=== PATIENT | female | born 1935 | race Asian ===

== ENCOUNTER 2019-01-08 18:03 | Inpatient (IN) | payer OTHER, MEDICAID ==
[~2019-01-08] VITALS: Ht 147.3 cm; Wt 54.5 kg
--- NOTE | 2019-01-08 18:15 | NUR ---
RECEIVED PT FROM TRIAGE. PT FROM [facility] CLOSE BY. FEVER FOR 3 DAYS, TYLENOL GIVEN YESTERDAY. PT ARRIVED TEMP 103, CONFUSED, S/TACH ON TELE, IN DIAPER FROM FACILITY. COOLING MEASURES IMPLEMENTED IMMEDIATELY UPON ARRIVAL, ICE TO GROIN AND UNDERARMS. DAUGHTER CALLED AND WILL CALL BACK FOR UPDATES ON HER MOTHER.
[2019-01-08 18:49] LABS: PLATELET COUNT 198 x10^3mcL (130-400); RED CELL DISTRIBUTION WIDTH 14.4 % (11.5-14.5)
[2019-01-08 19:10] LABS: BAND NEUTROPHIL 6 % (0-10); BASOPHIL 0 % (0-2); METAMYELOCTE 1 % (0-2); MONOCYTE 5 % (0-7); SEGMENTED NEUTROPHILS 82 % (37-75)
[2019-01-08 19:12] LABS: rbc morphology (normal/abnorm) NORMAL (NORMAL)
[2019-01-08 19:28] LABS: CALCIUM 8.4 mg/dL (8.5-10.1); CARBON DIOXIDE 24.8 mmol/L (21-32); CHLORIDE SERUM 98 mmol/L (98-107); CREATININE SERUM 0.9 mg/dL (0.6-1.0); GLUCOSE SERUM 227 mg/dL (74-106); POTASSIUM SERUM 3.4 mmol/L (3.5-5.1); SODIUM SERUM 134 mmol/L (136-145)
--- NOTE | 2019-01-08 19:30 | NUR ---
REPORT GIVEN TO RADHA BARRIOS. EVERYTHING IS COMPLETED EXCEPT ABX.
[2019-01-08 19:37] LABS: microscopic required? YES; urine erythrocyte 2+ (NEGATIVE)
[2019-01-08 19:40] LABS: ALBUMIN 2.2 g/dL (3.4-5.0); ALKALINE PHOSPHATASE 80 U/L (46-116); ALT/SGPT 22 U/L (14-59); AST/SGOT 48 U/L (15-37); BILIRUBIN TOTAL 0.3 mg/dL (0.20-1.00); TOTAL PROTEIN, SERUM 7.4 g/dL (6.4-8.2)
--- NOTE | 2019-01-08 19:47 | NUR ---
PT MEDICATED PER ORDER. SEE EMAR.
--- NOTE | 2019-01-08 20:25 | NUR ---
SECOND ABX STARTED AT THIS TIME. PT REACHING FOR MY HAND WHEN I CALLED HER NAME.
--- NOTE | 2019-01-08 20:32 | NUR ---
SPOKE WITH PT DAUGHTER KRISTI REGARDING PT STATUS. PER DAUGHTER, HER SISTER IS ON HER WAY TO THE HOSPITAL.
--- NOTE | 2019-01-08 20:36 | NUR ---
REPORT RECEIVED FROM RADHA BARRIOS. PT IN CT AT THIS TIME. PT'S CARE ASSUMED AT THIS TIME.
--- NOTE | 2019-01-08 21:01 | NUR ---
PT STILL IN CT. DAUGHTER AT BEDSIDE AND UPDATED ON PT'S STATUS BY RADHA BARRIOS.
--- NOTE | 2019-01-08 21:02 | NUR ---
PT TO ED FROM CT AT THIS TIME.
--- NOTE | 2019-01-08 21:09 | NUR ---
PT NOT TO HAVE LABORED BREATHING. NOTED TO HAVE A POX OF 75%. PT PLACED ON NB MASK. POX IMPROVED. DR BYNUM AWARE AND CALLED TO BEDSIDE. PT BEING INTUBATED. FLUIDS STOPPED PER VERBAL INSTRUCTIONS OF DR MISA MORELOS. FAMILY AT BEDSIDE AND GAVE VERBAL CONSENT TO INTUBATE PT.
--- NOTE | 2019-01-08 21:25 | NUR ---
CALLED TO BEDSIDE TO ASSIST FOR PT INTUBATION. AT THE BEDSIDE FOR INTUBATION 21:20. 21:21 KETAMINE 100MG PER MD ORDER IVP TO RFA 20G IV ACCESS. 21:21 SUCCYNOCHOLINE 100MG AT 21:21 IVP TO RFA 20G IV ACCESS. 21;23 INTUBATION COMPLETED BY AND RT YANCI AND RT THOMAS AT BEDSIDE FOR ASSISTANCE. POSITIVE COLOR CHANGE AND AUDIBLE BREATH SOUNDS NOTED ON AUSCULTATION BY RT YANCI.
[2019-01-08 21:35] VITALS: BP 144/88
--- NOTE | 2019-01-08 21:45 | NUR ---
OJ PLACED AT THIS TIME. PLACEMENT CONFIRMED BY ASCULATION. SUCTION BEING NEEDED. RT REMAINS AT BEDSIDE.
--- NOTE | 2019-01-08 21:50 | NUR ---
FIO2 TITRATED TO 40%. SPO2 STABLE AT 96%. ABG TO FOLLOW. WILL MONITOR.
--- NOTE | 2019-01-08 22:04 | NUR ---
SPOKE WITH DR BYNUM REGARDING MED ORDERS. RN TO START FETANYL DRIP FIRST AND IF NEEDED TO START PROPOFOL DRIP. PHARMACIST CONTACTED FOR FETANYL DRIP. PHARMACIST MADE AWARE PT'S ACTUAL WEIGHT PER DAUGHTER IS "101.4" LBS.
--- NOTE | 2019-01-08 22:06 | NUR ---
X-RAY BEING DONE AT BEDSIDE.
--- NOTE | 2019-01-08 22:15 | NUR ---
ADMITTING MD AT BEDSIDE AND SPEAKING WITH DAUGHTER.
--- NOTE | 2019-01-08 22:24 | NUR ---
DR BYNUM, ERP, AT BEDSIDE. DAUGHTER UPDATED ON PLAN OF CARE.
--- NOTE | 2019-01-08 22:41 | NUR ---
FENTANYL DRIP RECEIVED FROM PHARMACY. DAUGHTER CONSIDERED ABOUT MED ADMINISTRATION STATING PT IS "NARCOTIC NAIVE." DAUGHTER MADE AWARE MED NEEDED TO KEEP PT SEDATED TO PREVENT SELF-EXTUBATION. DAUGHTER VERBALIZED UNDERSTANDING. DAUGHTER REQUESTING A LOWER STARTING DOSE. AWAITING CONFIRMATION FROM MD PRIOR TO MED ADMINISTRATION. PT TOLERATING INTUBATION WELL AT THIS TIME. RT AT BEDSIDE FOR ABG. DAUGHTER REMAINS AT BEDSIDE.
--- NOTE | 2019-01-08 22:57 | NUR ---
LUMBAR PUNCTURE TO BE DONE BY DR BYNUM. DAUGHTER GAVE VERBAL AND WRITTEN CONSENT. ERT SETTING UP FOR LP AT BEDSIDE.
--- NOTE | 2019-01-08 23:00 | NUR ---
PATIENT FOUND WITH ETT 23CM AT THE RIGHT LIP. ETT WITHDRAWN 3CM. ETT AT 20CM AT RIGHT LIP. RN NOTIFIED. BILATERAL BREATH SOUNDS NOTED. WILL MONITOR.
--- NOTE | 2019-01-08 23:05 | NUR ---
RT, THOMAS, AT BEDSIDE. INTUBATION TUBE PULLED BACK 2 CM. 7.5TUBE AT 20LIP AT THIS TIME.
--- NOTE | 2019-01-08 23:17 | NUR ---
PT ADMITTED TO ICU. REPORT CALLED TO URIAH BARRIOS. OPPORTUNITY GIVEN TO ASK QUESTIONS. PT BEING TRANSFERRED TO ICU POST LP PROCEDURE.
--- NOTE | 2019-01-08 23:59 | NUR ---
LP PROCEDURE COMPLETED BY DR BYNUM. 4 SPECIMEN TUBES COLLECTED BY ERP, LABELED AND WALKED TO LAB BY RN. PT TEMP RECHECKED AND PT REMEDICATED WITH 650MG TYLENOL SUPPOSITORY PER ERP'S VERBAL ORDERS. BP DECREASED POST FENTANYL IVP (100MCG) PRIOR TO LP PROCEDURE PER ERICH BYNUM VERBAL ORDER. WILL CONTINUE TO MONITOR. FAMILY UPDATED ON PLAN OF CARE. PT BEING TRANSFERRED TO ICU AT THIS TIME BY RN.
[2019-01-09] VITALS (16 sets, daily range): BP systolic 82–116; BP diastolic 41–76
--- NOTE | 2019-01-09 00:30 | NUR ---
RECEVIED PT FROM ER ACCOMPANIED BY HALEY RN AND ANGÉLICA EMT. PT TRANSFERRED TO ICU BED 3 WITH FULL ASSIST TO BED, NO COMPLICATIONS, ATTACHED TO FULL SEDIMENTATIONIST AND PULSE OXIMETRY. RECEIVED PT INTUBATED AND SEDATED ON FENTANYL @ 2.5 MCG/KG/HR, TITRATED TO 0.5 MCG/KG/HR, RSS=5 AT THIS TIME, RESPONDS TO PAINFUL STIMULI, EYES DO NOT OPEN SPONTANEOUSLY AND DO NOT TRACK. PUPILS 2MM SLUGGISH RESPONSE TO LIGHT B/L, PERRLA. NO FACIAL DROOP NOTED.PT INTUBATED TO VENT, INTACT/SECURED. OGT INTACT/SECURED AND CLAMPED. ORAL MUCOSA COATED. TRACHEA MIDLINE, NO DRAINAGE TO EENT.7.5 ETT, 20 LL, ORAL CARE PROVIDED PER VAP PROTOCOL. VENT SETTINGS VCV-AC MODE, FIO2 40%, VT 400, PEEP 5, RATE 14. LUNG SOUNDS CLEAR TO BUL, DIMINISHED BLL. CHEST RISE/FALL SYMMETRIC, E/U BREATHING. NO ACUTE RESP DISTRESS.S1/S2 SOUNDS, NO S/S OF CHEST PAIN. PT ON FULL SEDIMENTATIONIST, NORMAL SINUS RHYTHM NOTED.GEN WEAKNESS. BED REST. NO CONTRACTURES/DEFORMITIES, PT ON TURN SCHEDULE Q2H. BUE SOFT WRIST RESTRAINTS ON FOR PT SAFETY, SKIN AND PULSE WNL, 2 FINGER WIDTH SPACE. NO JOINT SWELLING/TENDERNESS. ACTIVE BOWEL SOUNDS X4 QUADRANTS, ABD SOFT/FLAT/NONTENDER. NO BM NOTED. F/C DRAINING TO GRAVITY CLEAR YELLOW URINE, INTACT/SECURED. NO VAGINAL DISCHARGE OR EDEMA NOTED.SKIN INTACT. WARM/DRY TO TOUCH. IV TO RFA, RW, 20G, PORTS PATENT, NO S/S OF INFILTRATION, DRESSING CDI. PT NPO, NO S/S OF N/V. BED AT LOWEST SETTING ,CALL LIGHT WITHIN REACH, HOB ELEVATED. TEACHING PROVIDED TO SAMANTHA BERRY AT BEDSIDE.
--- NOTE | 2019-01-09 00:35 | NUR ---
DR. PEREZ AT BEDSIDE FOR ASSESSMENT, SPEAKING WITH DAUGHTER ON POC. UPDATES PROVIDED, NO NEW ORDERS AT THIS TIME.
--- NOTE | 2019-01-09 00:40 | NUR ---
FENTANYL TITRATED OFF AT THIS TIME, RSS=5.
--- NOTE | 2019-01-09 00:49 | NUR ---
NORMAL SALINE GTT INITIATED AT THIS TIME @ 75 ML/HR.
[2019-01-09 01:07] LABS: TOTAL PROTEIN CSF 489.7 mg/dL (15-45)
[2019-01-09 01:39] LABS: APPEARANCE CSF CLEAR; COLOR CSF PINK; MONOCYTE CSF 5 %; RBC CSF 15010 /cumm (0); VOLUME CSF 3.5 mL; WBC CSF 40 /cumm (0-5)
[2019-01-09 01:40] LABS: APPEARANCE CSF CLEAR; COLOR CSF COLORLESS; VOLUME CSF 3.5 mL
[2019-01-09 01:41] LABS: MONOCYTE CSF 3 %; RBC CSF 510 /cumm (0); WBC CSF 1040 /cumm (0-5)
--- NOTE | 2019-01-09 02:05 | NUR ---
DR. BYNUM, ED DOCTOR AT BEDSIDE SPEAKING WITH DAUGHTER KRISTI ON POC AND CSF RESULTS FROM LUMBAR PUNCTURE. PER DR. BYNUM HE TOLD LAB TO RESEND RESULTS AGAIN AND PT POSSIBLY HAS VIRAL MENINGITIS. DROPLET PRECAUTIONS INITIATED AT THIS TIME. DR. BYNUM SPEAKING WITH DR. PEREZ AT NURSING STATION ON POC AND INTERVENTIONS. WILL CARRY OUT ORDERS.
--- NOTE | 2019-01-09 02:38 | NUR ---
PROPOFOL GTT INITIATED AT THIS TIME @ 5 MCG/KG/HR. RSS=1 AT THIS TIME. PT AWAKE, GESTURES WITH DAUGHTER AT BEDSIDE.
--- NOTE | 2019-01-09 02:57 | NUR ---
DR. PEREZ MADE AWARE OF PT'S CRITICAL CSF CULTURE GRAM POSITIVE COCCI. NO NEW ORDERS AT THIS TIME.
[2019-01-09 03:01] LABS: APPEARANCE CSF CLEAR; COLOR CSF COLORLESS; RBC CSF 540 /cumm (0); VOLUME CSF 3.5 mL
[2019-01-09 03:02] LABS: MONOCYTE CSF 3 %
[2019-01-09 03:08] LABS: WBC CSF 640 /cumm (0-5)
[2019-01-09 03:09] LABS: CALCIUM 7.8 mg/dL (8.5-10.1); CARBON DIOXIDE 22.7 mmol/L (21-32); CHLORIDE SERUM 102 mmol/L (98-107); CREATININE SERUM 0.8 mg/dL (0.6-1.0); GLUCOSE SERUM 177 mg/dL (74-106); SODIUM SERUM 136 mmol/L (136-145)
[2019-01-09 03:13] LABS: PLATELET COUNT 171 x10^3mcL (130-400); RED CELL DISTRIBUTION WIDTH 14.3 % (11.5-14.5)
--- NOTE | 2019-01-09 03:18 | NUR ---
DR. PEREZ MADE AWARE OF PTS CRITICAL LAB WBC 24.0.
[2019-01-09 03:37] LABS: BAND NEUTROPHIL 5 % (0-10); MONOCYTE 11 % (0-7); SEGMENTED NEUTROPHILS 78 % (37-75)
[2019-01-09 03:38] LABS: rbc morphology (normal/abnorm) NORMAL (NORMAL)
[2019-01-09 03:40] LABS: PLATELET MORPHOLOGY PLATELETS NORMAL
[2019-01-09 03:51] LABS: POTASSIUM SERUM 2.6 mmol/L (3.5-5.1)
--- NOTE | 2019-01-09 03:52 | NUR ---
DR. PEREZ MADE AWARE OF PTS POTASSIUM OF 2.6. AND TROPONIN OF 0.155.
--- NOTE | 2019-01-09 05:20 | NUR ---
PT HAD MODERATE FORMED BM, LIGHT BROWN IN COLOR. PT CHUCKS GOWN, LINEN CHANGED AT THIS TIME. TOTAL CARE AND CAMPBELL CARE PROVIDED.
--- NOTE | 2019-01-09 05:48 | NUR ---
RT GUZMAN AT BEDSIDE FOR EKG.
--- NOTE | 2019-01-09 06:39 | NUR ---
MANAGER STORY AT BEDSIDE FOR CHEST XRAY
--- NOTE | 2019-01-09 06:40 | NUR ---
DR. SAADIA BROWN MADE AWARE OF PT'S DAUGHTER RECOMMENDATION OF ORDERING PRO CALCITONIN LAB.
--- NOTE | 2019-01-09 06:50 | NUR ---
FENTANYL TITRATED BACK ON @ 0.25 MCG/KG/HR. RSS=1. PT AWAKE, ATTEMPTING TO KICK NURSING STAFF WITH LEGS REACHING OVER SIDE RAILS. PROPOFOL TITRATED TO 2.5 MCG/KG/HR.
--- NOTE | 2019-01-09 06:55 | NUR ---
NORMAL SALINE GTT TITRATED TO 100 ML/HR PER MD ORDER.
--- NOTE | 2019-01-09 07:14 | NUR ---
GAVE REPORT TO KALPANA BARRIOS. UPDATES GIVEN, QUESTIONS ANSWERED.
--- NOTE | 2019-01-09 07:53 | NUR ---
SPOKE WITH DR OROZCO AND REPORTED LOW BP. AWAITING NEW ORDERS.
--- NOTE | 2019-01-09 08:31 | NUR ---
300 ML BOLUS STARTED AT THIS TIME.
--- NOTE | 2019-01-09 11:35 | NUR ---
FULL LINEN AND GOWN CHANGE AT THIS TIME. PATIENT STABLE. WILL CONTINUE TO MONITOR.
--- NOTE | 2019-01-09 12:23 | NUR ---
DR. SMITH AT BEDSIDE ALL UPDATES PROVIDED, NO NEW ORDERS AT THIS TIME.
--- NOTE | 2019-01-09 12:35 | NUR ---
TUBE FEEDINGS STARTED AT THIS TIME. PATIENT STABLE, WILL CONTINUE TO MONITOR.
--- NOTE | 2019-01-09 19:08 | NUR ---
REPORT GIVEN TO SOPHIE ALONSO. ALL QUESTIONS ANSWERED.
--- NOTE | 2019-01-09 19:46 | NUR ---
RECEIVED REPORT FROM SOPHIE RODRIGEZ. PT IS ALERT AND RESPONSIVE TO TACTILE STIMULUS. PUPILS 3 MM AND SLUGGISH BILATERALLY. PT IS BREATHING E/U ON VENT. SETTINGS INCLUDE RATE: 14, TV: 400, O2: 40%, PEEP: 5. 7.5 ETT AT 20 CM AT LL. OGT PATENT. LUNG SOUNDS CLEAR TO BILATERAL UPPER LOBES, DIMINISHED TO BILATERAL LOWER LOBES. S1 S2 HEART SOUNDS AUSCULTATED. PULSES MODERATE X4. CAP REFILL <3 SECONDS X4. SKIN IS WARM AND CONSISTENT WITH ETHNICITY. PERIPHERAL IV TO RIGHT FA AND WRIST, PATENT, DRESSING CDI. NS INFUSING AT 100 ML/HR, VERSED INFUSING AT 2 MG/HR AND FENTANYL INFUSING AT 0.25 MCG/KG/HR. ABD FIRM AND ROUNDED WITH ACTIVE BOWEL SOUNDS X4Q. CAMPBELL DRAINING VIA GRAVITY, URINE ORANGE WITH FAIR OUTPUT. SCD IN PLACE. VITAL AF INFUSING AT 35 ML/HR.
--- NOTE | 2019-01-09 22:18 | NUR ---
DR. CHAVEZ AT BEDSIDE FOR UPDATES. ALL QUESTIONS AND CONCERNS ANSWERED. IS CURRENTLY SPEAKING TO DAUGHTER. PT NO LONGER ON DROPLET PRECAUTION.
--- NOTE | 2019-01-09 23:56 | NUR ---
PT SPIKED FEVER OF 101.0. PT PROVIDED WITH TYLENOL, AND ICE PACKS.
[2019-01-10] VITALS (17 sets, daily range): BP systolic 83–128; BP diastolic 41–80
--- NOTE | 2019-01-10 01:59 | NUR ---
PT'S MAP < 60. DAUGHTER HAD STATED THAT PT'S BP IS NORMALLY PRETTY LOW, BUT MAP WAS 57. DR. PEREZ ORDERED 500 ML BOLUS. TITRATED VERSED FROM 2MG/HR TO 1.5 MG/HR TO ASSIST IN NORMALIZING BP. PT APPEARS TO BE IN NO DISTRESS AT THIS TIME. WILL CONTINUE TO MONITOR.
[2019-01-10 04:51] LABS: PLATELET COUNT 181 x10^3mcL (130-400); RED CELL DISTRIBUTION WIDTH 14.7 % (11.5-14.5)
[2019-01-10 05:05] LABS: BAND NEUTROPHIL 6 % (0-10); MONOCYTE 10 % (0-7); SEGMENTED NEUTROPHILS 78 % (37-75)
[2019-01-10 05:08] LABS: rbc morphology (normal/abnorm) NORMAL (NORMAL)
[2019-01-10 05:09] LABS: PLATELET MORPHOLOGY PLATELETS NORMAL
[2019-01-10 05:10] LABS: CALCIUM 6.9 mg/dL (8.5-10.1); CARBON DIOXIDE 21.8 mmol/L (21-32); CHLORIDE SERUM 113 mmol/L (98-107); CREATININE SERUM 0.6 mg/dL (0.6-1.0); GLUCOSE SERUM 237 mg/dL (74-106); MAGNESIUM 2.3 mg/dL (1.8-2.4); PHOSPHOROUS 2.1 mg/dL (2.5-4.9); POTASSIUM SERUM 3.8 mmol/L (3.5-5.1); SODIUM SERUM 143 mmol/L (136-145)
--- NOTE | 2019-01-10 05:30 | NUR ---
DR. ARNETT AT BEDSIDE FOR UPDATES. ALL QUESTIONS AND CONCERNS ANSWERED. MADE AWARE OF LOW BP, STATED THAT SHE WAS GOING TO TALK TO DR. MCKINLEY ON NEXT STEPS.
--- NOTE | 2019-01-10 06:47 | NUR ---
PAGE GATE DR. ARNETT MAP <65. WILL AWAIT ORDERS.
--- NOTE | 2019-01-10 07:00 | NUR ---
RECEIVED REPORT FROM CELESTE BARRIOS. ALL QUESTIONS AND CONCERNS ADDRESSED. WILL RESUME CARE OF PT.
--- NOTE | 2019-01-10 07:00 | NUR ---
DR. ARNETT ORDERED LEVOPHED.INITIATED AT 1 MCG/MIN FOR MAP < 65.
--- NOTE | 2019-01-10 07:00 | NUR ---
RECEIVED PT INTUBATED AND SEDATED ON VERSED @ 1.75 MG/HR AND FENTANYL @ 0.25 MCG/KG/HR. ABLE TO FOLLOW COMMANDS. RESPONDS TO VERBAL, TACTILE, AND PAINFUL STIMULUS. RSS = 4. PUPILS 1MM IN SIZE AND SLUGGISH IN RESPONSE TO LIGHT B/E. NO FACIAL DROOP NOTED. TRACHEA MIDLINE. SCANT AMNT OF CLEAR SECRETIONS NOTED FROM ORAL MOUTH AND CLEAR BY SUCTIONING. 7.5 ETT @ 20 LL. OGT INTACT AND SECURED - VITAL AF INFUSING @ 35 ML/HR WITH 50CC FWF Q4H. TOLERATING WELL. GRV = 0. NO S/S OF ASPIRATION NOTED. SYMMETRICAL CHEST WALL EXPANSION NOTED. RESPIRATIONS ARE EVEN AND UNLABORED. NO ADVENTITIOUS LUNG SOUNDS AUSCULTATED. NO S/S OF SOB OR RESP DISTRESS NOTED. NSR. PALPABLE PULSES X4. CAP REFILL <3 SEC TO BUE AND BLE. SKIN IS WARM/DRY TO TOUCH, PHAM/BROWN IN COLOR. PIV TO RFA AND R WRIST INTACT, PORTS PATENT, DRESSINGS CDI. NS INFUSING @ 120 ML/HR AND LEVOPHED INFUSING @ 1MCG/MIN. ABD IS SOFT, SYMMETRICAL, ROUND, AND NONTENDER. ACTIVE BOWEL SOUNDS AUSCULTATED X4. F/C INTACT AND DRAINING VIA GRAVITY. URINE IS YELLOW IN COLOR WITH FAIR OUTPUT. NO VAGINAL BLEEDING OR DISCHARGE NOTED. B/E SOFT WRIST RESTRAINTS APPLIED. JOINTS INTACT. NO CONTRACTURES. GENERALIZED WEAKNESS NOTED. SCD TO BLE, ON ISOGEL MATTRESS. BED IN LOWEST POSITION, HOB 30 DEGREES, X3 SIDE RAILS UP.
--- NOTE | 2019-01-10 07:28 | NUR ---
BP NOW WNL. LEVOPHED STOPPED.
--- NOTE | 2019-01-10 07:31 | NUR ---
REPORT GIVEN TO AIRAM, ALL QUESTIONS AND CONCERNS ANSWERED.
--- NOTE | 2019-01-10 08:45 | NUR ---
TITRATED VERSED TO 1.5 MG/HR TO MAINTAIN RSS = 4.
--- NOTE | 2019-01-10 10:13 | NUR ---
DR. MCKINLEY AND RESIDENTS AT BEDSIDE ASSESSING PT. UPDATES PROVIDED. NO NEW ORDERS AT THIS TIME.
--- NOTE | 2019-01-10 10:40 | NUR ---
MAP OF 55. INITIATED LEVOPHED @ 2MCG/MIN TO ACHIEVE MAP OF 65.
--- NOTE | 2019-01-10 11:00 | NUR ---
FENTANYL TURNED OFF AT THIS TIME. VERSED TITRATED TO 1 MG/HR TO MAINTAIN RSS OF 4.
--- NOTE | 2019-01-10 11:08 | NUR ---
LEVOPHED TURNED OFF AT THIS TIME. PT'S BP OF 102/41 (75).
--- NOTE | 2019-01-10 12:00 | NUR ---
B/E SOFT WRIST RESTRAINTS REMOVED AT THIS TIME. DAUGHTER AT BEDSIDE AND WATCHING OVER PT. EXPLAINED TO PT AND DAUGHTER OF THE PRECAUTIONS TO BE AWARE OF WHILE PT'S RESTRAINTS ARE OFF. DAUGHTER VERBALIZES UNDERSTANDING.
--- NOTE | 2019-01-10 12:39 | NUR ---
PT HAS LIGHTYELLOW/BROWN LIQUID STOOL. FLEXISEAL ORDERED AND INSERTED. NO COMPLICATIONS AT THIS TIME. FLEXISEAL DRAINING TO GRAVITY.
--- NOTE | 2019-01-10 13:00 | NUR ---
PIV TO R FA INFILTRATION NOTED AND REMOVED AT THIS TIME.
--- NOTE | 2019-01-10 14:05 | NUR ---
VERSED TITRATED TO 0.75 MG/HR FOR CPAP TRIALS LATER ON TODAY.
--- NOTE | 2019-01-10 15:35 | NUR ---
TITRATED VERSED TO 0.5 MG/HR FOR CPAP TRIALS LATER.
--- NOTE | 2019-01-10 16:23 | NUR ---
VERSED TURNED OFF AT THIS TIME FOR CPAP TRIAL.
--- NOTE | 2019-01-10 16:30 | NUR ---
RT AT BEDSIDE. CPAP TRIAL INITIATED. PT O2 SAT OF 98%. WILL CONT TO MONITOR.
--- NOTE | 2019-01-10 16:42 | NUR ---
1630 PT CHANGED TO CPAP 5 PS 12 TOLERATING WELL FAMILY AT BEDSIDE.
--- NOTE | 2019-01-10 19:00 | NUR ---
REPORT GIVEN TO ISAURA BARRIOS. ALL QUESTIONS ANSWERED AND ADDRESSED. WILL ENDORSE CARE.
--- NOTE | 2019-01-10 19:10 | NUR ---
RECEIVED REPORT FROM AIRAM BARRIOS. WILL RESUME CARE.
--- NOTE | 2019-01-10 22:04 | NUR ---
RT KIM AT BEDSIDE ASSESSING PT.
[2019-01-11] VITALS (13 sets, daily range): BP systolic 103–128; BP diastolic 48–78
--- NOTE | 2019-01-11 00:25 | NUR ---
DR. CHAVEZ AT BEDSIDE ASSESSING PT. UPDATES PROVIDED.
--- NOTE | 2019-01-11 03:39 | NUR ---
PT HAS TEMP OF 100.4. TYLENOL 650MG OGT GIVEN. COOLING MEASURES IN PLACE.
[2019-01-11 04:15] LABS: BASOPHIL % 0.2 % (0-2); PLATELET COUNT 187 x10^3mcL (130-400); RED CELL DISTRIBUTION WIDTH 14.3 % (11.5-14.5)
[2019-01-11 04:24] LABS: CALCIUM 6.8 mg/dL (8.5-10.1); CARBON DIOXIDE 23.2 mmol/L (21-32); CHLORIDE SERUM 111 mmol/L (98-107); CREATININE SERUM 0.6 mg/dL (0.6-1.0); GLUCOSE SERUM 167 mg/dL (74-106); PHOSPHOROUS 1.2 mg/dL (2.5-4.9); SODIUM SERUM 144 mmol/L (136-145)
[2019-01-11 04:29] LABS: POTASSIUM SERUM 2.5 mmol/L (3.5-5.1)
--- NOTE | 2019-01-11 05:00 | NUR ---
LEVOPHED GTT TURNED BACK ON TO 2MCG/MIN. B/P 90/38. MAP 57.
--- NOTE | 2019-01-11 07:15 | NUR ---
GAVE REPORT TO YOON BARRIOS. ALL QUESTIONS AND CONCERNS ADDRESSED.
--- NOTE | 2019-01-11 07:20 | NUR ---
LEVOPHED GTT TURNED OFF. BP 103/60. MAP 82.
--- NOTE | 2019-01-11 07:30 | NUR ---
PATIENT REMAINS INTUBATED WITH NO SEDATION. PATIENT AWAKE; EYES OPEN SPONTANEOUSLY. PATIENT COMMUNICATES BY GESTURING AND WRITING. ETT 7.5 IS SECURED TO FACE AT 20CM AT LIPLINE. ETT TO VENT VIA VCV/AC MODE: FIO2 35%, RATE 14, VT 400 AND PEEP 5. SCANT AMOUNT OF BLOODY SECRETION UPON SUCTIONING. BREATHING EVEN. OGT IN PLACE AND SECURED TO ETT. OGT PLACEMENT VERIFIED WITH SOME AIR BOLUS.OGT TO TUBE FEEDING OF VITAL AF AT 35ML/HR AND FREE WATER FLUSH AT 50ML EVERY 4HR. NO RESIDUAL. IV SITE TO RFA WITH IVF NS AT 120CC/HR. TELE # 3 READS NORMAL SINUS RHYTHMS. CAMPBELL CATH TO GRAVITY DRAINING YELLOW URINE. FLEXISEAL IN PLACE DRAINING LIQUID STOOL. CALL LIGHT WITHIN REACH. SIDE RAILS UP X3. HEAD OF BED ELEVATED. EXTREMITIES ELEVATED. ISOGEL MATTRESS IN PLACE. THE DAUGHTER IS AT BEDSIDE.
--- NOTE | 2019-01-11 08:50 | NUR ---
OGT FEEDING ON HOLD SO THAT THE PATIENT WILL HAVE WEANING TRIAL.
--- NOTE | 2019-01-11 08:51 | NUR ---
PT INTUBATED ON VENTILATOR IN NAD. PTS DAUGHTER BEDSIDE. PT AWAKE ON NO SEDATION. BREATHSOUNDS COARSE AND RHONCHI. SUCTIONED SMALL TO MODERATE AMOUNT OF THICK AND THIN RAIZA RED BLOOD FROM PATIENTS ETT. PT PLACED ON CPAP PEEP +5 AND PS 12. RN NOTIFIED. WILL CONTINUE TO MONITOR.
--- NOTE | 2019-01-11 09:20 | NUR ---
DR. MCKINLEY AND THE TEAM ARE MAKING ROUND TO SEE THE PATIENT. PLAN OF CARE DISCUSSED WITH THE PATIENT'S DAUGHTER CATALINA AT BEDSIDE.
--- NOTE | 2019-01-11 11:46 | NUR ---
TYLENOL 650MG VIA OGT MEDICATED TO THE PATIENT FOR TEMP 100.4; COOLING METHOD SET UP.
--- NOTE | 2019-01-11 14:52 | NUR ---
DR. ROMERO IN TO SEE THE PATIENT.
--- NOTE | 2019-01-11 15:13 | NUR ---
Initial Nutrition Assessment/Nutrition Consult Dx: Severe Sepsis PMHx: Alzheimer's, Thalassemia, Osteoporosis, HLD PSHx: Labs: (01/11) Na 144, K 2.5L, BG 167H, Trop + x3, WBC 11.9H, H/H 10.2L/31L. A1c 6.6H Meds: Colace, [place], Protonix, Rocephin, Sublimaze, Vancocin, Zofran, Heparin Nutrition Support: TF via OG tube with Vital AF 1.2 @ goal rate 35 mL/hr with 50 mL FWF Q4H. Residuals: Minimal <5 mL I and O: (01/11) 3802/1050 +2752 (01/10) 3924/1200 +2734 (01/09) 580/750 -170. Positive fluid balance noted; weight fluctuations are expected. TF intake: (01/11) 801 mL (01/10) 419 mL. Current rate meeting >75% estimated kcal and protein needs. Ht: 58" (147 cm) Wt: 119# (54 kg) BMI: 24.9 (WNL) IBW: 95# %IBW: 125% UBW: Unknown; unable to obtain Age: 84 y/o elderly female Food Allergies: NKFA Skin: Intact Jl: 14 Edema: None GI: Flexiseal in place with brown/yellow liquid stool Per H&P, pt. admitted from SNF to ED d/t altered mental status. Prior to admission, pt. had 2 episodes of loose stool, lethargy, and decreased appetite. Intubated upon admission d/t decompensation per provider notes. Remains intubated and sedated during bedside visit with TF running at goal rate 35 ml/hr with 50 ml FWF Q4H. Tolerating TF with minimal GRV per RN. CPAP trials taking place for possible extubation. T: Appears underweight/malnourished, C: Malnutrition Problem with: No N/V/C +loose stools Problems with: Chewing: Y Swallowing: Y Current appetite: N/A Recent wt change: None %wt change: N/A Vitamin/Supplement use: None Special diet at home: Regular diet at SNF Physical activity: Unable d/t chronic medical conditions and advanced age Education: Diet education not appropriate during visit, as pt. was intubated and sedated at this time. Estimated Nutritional Needs Based Ve: 8.61, T: 38 C, CBW: 54 kg Energy: 1248 kcal/d (PSU 2002 for ICU patients on ventilator support) Protein: 65-81 g/d (1.2-1.5 g/kg-severe sepsis) Fluid: 1248 ml/d (1 ml/kcal) or per doctor Nutrition Diagnosis 1. Increased nutrient needs r/t increased metabolic demands AEB presence of severe sepsis, elevated body temperature, and potential risks for skin integrity breakdown. Intervention 1. Increase FWF to 100 mL Q4H to meet estimated fluid requirements. Continue OG TF with Vital AF 1.2 @ 35 mL/Hr to provide 1008 kcal, 63 g protein, and with increase in FWF, 981 mL total water. Regimen meets >75% estimated kcal and protein needs. Monitor/Evaluate Goal: TF intake at least 75% estimated needs Monitor: TF intake/tolerance, Labs, GI function, weights F/U in 2-3 days as high risk (01/13-01/14)
--- NOTE | 2019-01-11 15:28 | NUR ---
DR ROMERO BEDSIDE, PTS VITAL CAPACITY 567, MIP -25.8, POSITIVE CUFF LEAK. PT AWAKE AND ABLE TO FOLLOW COMMANDS. PT EXTUBATED AT 1515 TO 6LPM AEROSOL MASK WITH 10ML COOL AEROSOL. PT WAS SUCTIONED ORALLY AND VIA ETT PRIOR TO EXTUBATION. PT APPEARS COMFORTABLE IN NAD ON AEROSOL MASK. SPO2 100, HR 83, RR 21. FAMILY BEDSIDE. WILL CONTINUE TO MONITOR.
--- NOTE | 2019-01-11 15:28 | NUR ---
AT 1515, JAGDEEP-RESPIRATORY THERAPIST IS AT BEDSIDE EXTUBATING THE PATIENT; AEROSOL MASK APPLIED TO THE PATIENT S/P EXTUBATION. OXYGEN SAT 96% AND BP 130/76 (94). INSTRUCTED THE PATIENT NOT TO TALK FOR A COUPLE OF HOURS TO PROTECT THE VOCAL CORD S/P EXTUBATION. THE DAUGHTER IS AT BEDSIDE WITH THE PATIENT.
--- NOTE | 2019-01-11 15:51 | NUR ---
THE AEROSOL MASK WAS SWITCHED TO NASAL CANNULA AT 3L/MIN FOR THE PATIENT BY RT GANNON. O2 SAT 98% AT THIS TIME.
--- NOTE | 2019-01-11 16:24 | NUR ---
DR. GALEANA IS AT BEDSIDE ASSESSING THE PATIENT.
--- NOTE | 2019-01-11 16:58 | NUR ---
JAGDEEP TITRATED THE OXYGEN FROM 3L/MIN DOWN TO 2L/MIN VIA NASAL CANNULA. THE PATIENT'S OXYGEN SAT 96% AT THIS TIME.
--- NOTE | 2019-01-11 18:38 | NUR ---
PATIENT WAS GIVEN A BED BATH; LINEN AND GOWN CHANGED.
--- NOTE | 2019-01-11 19:15 | NUR ---
REPORT GIVEN TO SUZANNE DELAROSA RN. CONCERNS ADDRESSED.
--- NOTE | 2019-01-11 19:17 | NUR ---
RECEIVED REPORT FROM YOON BARRIOS. WILL RESUME CARE.
--- NOTE | 2019-01-11 20:45 | NUR ---
2044: PT WENT INTO ATRIAL [facility]UT[facility] FOR 30 SECONDS, HR UP TO 170'S. DR. MCCULLOUGH NOTIFIED. MONITORING PT AT THIS TIME. 2049: DR. MCCULLOUGH AND DR. PEREZ AT BEDSIDE ASSESSING PT. EKG ORDERED. WILL CONTINUE TO MONITOR PT.
--- NOTE | 2019-01-11 21:22 | NUR ---
EKG BEING DONE AT BEDSIDE.
--- NOTE | 2019-01-11 21:35 | NUR ---
ELEMENTARY ART TEACHER AT BEDSIDE FOR BLOOD DRAW.
--- NOTE | 2019-01-11 21:40 | NUR ---
CRITICAL LAB RESULT K+ 2.6. DR. PEREZ MADE AWARE. NEW ORDER FOR POTASSIUM CHLORIDE 40MEQ IV.
[2019-01-11 21:45] LABS: CALCIUM 7.3 mg/dL (8.5-10.1); CARBON DIOXIDE 26.9 mmol/L (21-32); CHLORIDE SERUM 108 mmol/L (98-107); CREATININE SERUM 0.5 mg/dL (0.6-1.0); GLUCOSE SERUM 102 mg/dL (74-106); SODIUM SERUM 144 mmol/L (136-145)
[2019-01-11 21:48] LABS: POTASSIUM SERUM 2.6 mmol/L (3.5-5.1)
--- NOTE | 2019-01-11 22:11 | NUR ---
PT TACHYCARDIC, HR IN THE 170'S. LOPRESSOR 5MG IVP ONCE PER DR. PEREZ ORDER. BEFORE ADMINISTRATION BP 120/68 (81), HR 177. AFTER ADMINISTRATION BP 127/75 (90), HR 78.
--- NOTE | 2019-01-11 23:43 | NUR ---
DR. CHAVEZ AT BEDSIDE ASSESSING PT. UPDATES PROVIDED. NO NEW ORDERS AT THIS TIME.
--- NOTE | 2019-01-12 01:14 | NUR ---
PT TEMP 100.4. TYLENOL 650MG HI GIVEN. WILL REASSESS.
[2019-01-12 03:30] VITALS: BP 104/60
--- NOTE | 2019-01-12 04:50 | NUR ---
WEB KNITTER AT BEDSIDE FOR BLOOD DRAW.
--- NOTE | 2019-01-12 05:00 | NUR ---
DR. DAVIDSON AT [facility] ASSESSING PT. UPDATES PROVIDED. MADE AWARE OF RECENT INCREASED HR IN THE 150'S.
--- NOTE | 2019-01-12 05:43 | NUR ---
HR IN THE 150'S. PER DR. LETY GALVEZ 10MG IVP GIVEN ONCE. BEFORE ADMINISTRATION HR 155, BP 99/50(68). MD AWARE OF BP. AFTER ADMINISTRATION HR 83, BP 109/58(75).
[2019-01-12 05:52] LABS: BASOPHIL % 0.1 % (0-2); PLATELET COUNT 225 x10^3mcL (130-400); RED CELL DISTRIBUTION WIDTH 14.4 % (11.5-14.5)
[2019-01-12 06:03] LABS: CALCIUM 7.5 mg/dL (8.5-10.1); CARBON DIOXIDE 22.2 mmol/L (21-32); CHLORIDE SERUM 109 mmol/L (98-107); CREATININE SERUM 0.6 mg/dL (0.6-1.0); GLUCOSE SERUM 90 mg/dL (74-106); PHOSPHOROUS 2.2 mg/dL (2.5-4.9); POTASSIUM SERUM 3.3 mmol/L (3.5-5.1); SODIUM SERUM 141 mmol/L (136-145)
[2019-01-12 07:00] VITALS: BP 97/59
--- NOTE | 2019-01-12 07:00 | NUR ---
RECEIVED REPORT FROM ISAURA BARRIOS. ALL QUESTIONS AND CONCERNS ADDRESSED. WILL RESUME CARE OF PT.
--- NOTE | 2019-01-12 07:00 | NUR ---
RECEIVED PT RESTING BUT EASILY AROUSABLE. AAOX4. LETHARGIC BUT SPEECH IS APPROPRIATE. NO FACIAL DROOP NOTED. PERRL. EENT FREE OF DISCHARGE. TRACHEA MIDLINE. NO JVD PRESENT. ON 2L NASAL CANNULA. RESPIRATIONS ARE EVEN AND UNLABORED. SYMMETRICAL CHEST WALL EXPANSION NOTED. NO ADVENTITIOUS BREATH SOUNDS AUSCULTATED. NO S/S OF RESP DISTRESS NOTED. NSR ON MONITOR. HR = 84. PALPABLE PULSES X4. NO EDEMA NOTED. SKIN IS WARM/DRY TO TOUCH, PHAM/BROWN IN COLOR AND IS CONSISTENT WITH ETHNICITY. PIV TO R WRIST INTACT, PORT PATENT, DRESSING CDI. NS INFUSING @ 10 ML/HR. LESION NOTED TO UPPER LIP. ABD IS SOFT, SYMMETRICAL, AND NONTENDER. FLEXISEAL IN PLACE, DRAINING VIA GRAVITY, GREEN/BROWN LIQUID STOOL NOTED IN BAG. F/C INTACT AND DRAINING VIA GRAVITY. URINE IS LIGHT YELLOW, CLEAR, WITH NO SEDIMENTS NOTED. NO VAGINAL BLEEDING OR DISCHARGE NOTED. SCD TO BLE, ON ISOGEL MATTRESS, BED IN LOWEST POSITION, CALL LIGHT WITHIN REACH.
[2019-01-12 07:47] VITALS: Ht 147.3 cm; Wt 54.5 kg
--- NOTE | 2019-01-12 10:11 | NUR ---
PT'S HR INTO THE 140'S TO BACK DOWN TO 80'S AND BACK TO 154. DR. OROZCO PAGED AND NOTIFIED. PT IS ASYMPTOMATIC. DENIES DIZZINESS, SYNCOPE, CP, OR CHEST PRESSURE.
--- NOTE | 2019-01-12 10:12 | NUR ---
DR. GALEANA PAGED IN REGARDS TO PT'S HEART RATE >150'S
--- NOTE | 2019-01-12 10:15 | NUR ---
DR. GALEANA NOTIFIED ABOUT PT'S HR AND ORDERED FOR METOPROLOL 2.5 IVP NOW AND Q6H.
--- NOTE | 2019-01-12 10:24 | NUR ---
EKG AT BEDSIDE.
--- NOTE | 2019-01-12 10:27 | NUR ---
PT'S HR BACK IN THE 85-90'S AND NSR. LOPRESSOR 2.5 MG IVP HELD AT THIS TIME.
[2019-01-12 11:15] VITALS: BP 109/64
--- NOTE | 2019-01-12 13:50 | NUR ---
DR. GALEANA AT BEDSIDE ASSESSING PT. METOPROLOL PARAMETERS GIVEN AND INPUT INTO PT'S CHART. DR. GALEANA CLEARED PT TO GO UPSTAIRS TO TELEMETRY.
--- NOTE | 2019-01-12 14:00 | NUR ---
NURSING SWALLOW SCREEN DONE WITH APPLESAUCE. PT TOLERATED WELL WITH NO SIGNS OF ASPIRATION OR POCKETING NOTED.
--- NOTE | 2019-01-12 14:01 | NUR ---
PT STATING 7/10 PAIN TO HER HIP AND REQUESTING FOR TYLENOL. MEDICATED PER EMAR. PT TOOK MEDICATION BY MOUTH WITH APPLESAUCE AND TOLERATED WELL. SWALLOWED WITH NO ASPIRATION NOTED. WILL CONT TO MONITOR.
--- NOTE | 2019-01-12 15:04 | NUR ---
SPEECH EVAL COMPLETED. STATES FOR PT TO BE ON PUREE DIET AND THIN-LIQUIDS. PT TOLERATED WELL.
--- NOTE | 2019-01-12 15:28 | NUR ---
REPORT GIVEN TO TREMAINE BARRIOS. PT WILL BE GOING TO 204-A, TELE MONITOR #1. PT TRANSFERRED TO TELE BED SAFELY WITH NO COMPLICATIONS. ACCOMPANIED BY AIRAM BARRIOS, STUDENT NURSE, PT'S DAUGHTER AND PT'S SISTER. BELONGINGS ARE BEING TRANSFERRED WITH PT AT THIS TIME.
--- NOTE | 2019-01-12 15:33 | NUR ---
PT WAS SEEN FOR DYSPHAGIA. PT WAS ABLE TO SAFELY SWALLOW PUREE DIET WITH THIN LIQUID. PT HAD DIFFICULTY WITH MASTICATION SKILLS FOR MS DIET. RECOMMENDATION PUREE DIET WITH THIN LIQUID SMALL BITES AND SIPS ONLY 1:1 SUPERVISION
--- NOTE | 2019-01-12 16:17 | NUR ---
RECEIVED PT FROM ICU, A+OX3, 2L NC, NO RESPRIATORY DISTRESS NOTED, PULSES MODERATE AND EQUAL FAMILIA, NO EDEMA NOTED, TELE 1, NSR, HR 83, VS STABLE, LESION TO UPPER LIP MULTICULTURAL MANAGER, OPTIFOAM TO BUTTOCKS CDI, CAMPBELL CATH DRAINING YELLOW URINE TO GRAVITY, FLEXISEAL INTACT DRAINING LIQUID STOOL, IV IN RFA SALINE LOCKED, SITE WNL, FAMILY AT BEDSIDE, CALL LIGHT WITHIN REACH.
[2019-01-12 16:21] VITALS: BP 98/61
[2019-01-12 18:12] LABS: CALCIUM 7.7 mg/dL (8.5-10.1); CARBON DIOXIDE 24.2 mmol/L (21-32); CHLORIDE SERUM 105 mmol/L (98-107); CREATININE SERUM 0.6 mg/dL (0.6-1.0); GLUCOSE SERUM 137 mg/dL (74-106); SODIUM SERUM 141 mmol/L (136-145)
--- NOTE | 2019-01-12 18:36 | NUR ---
PT RESTING IN BED, FAMILY ASSISTED PT TO EAT DINNER, TOLERATING PUREE DIET WELL, POOR APPETITE, CAMPBELL CARE DONE, CALL LIGHT WITHIN REACH.
[2019-01-12 19:50] VITALS: BP 106/67
--- NOTE | 2019-01-12 19:50 | NUR ---
PATIENT RECEIVED IN BED WITH EYES CLOSED, WHEN ASKED QUESTIONS SHE SIMPLY ANSWERS QUESTIONS THAT SHE WANTED TO ANSWER, SPEECH CLEAR, ORIENTED X3, FORGETFUL.BREATHING EVEN AND UNLABORED CLEAR DIMINISHED BASES, FOUND ON 2LNC SAT 97%. TELE#1 NSR, HR=85BPM, RHYTHM REGULAR. HEPLOCK TO RT FA PATENT AND INTACT TAPE SECURED,DUAL CAP PLACED AND CLAMPED. PATIENT DEPENDENT WITH ADL'S AND TURNING, NEEDS ANTICIPATED, TURNED TO HER RT SIDE THIS TIME. NO SKIN BREAKDOWN NOTED, NOTED A LESION TO UPPER LIP COAL CRUSHER OPERATOR. FLEXI SEAL DRAINING BROWN STOOL. CAMPBELL CATH DRAINING YELLOW UA, STAT LOCL TO LEFT THIGH, NO DEPENDENT LOOPS, CAMPBELL BAG OFF THE FLOOR. NO S/S OF PAIN THIS TIME. PATIENT AND CHILDREN INFORMED ABOUT POC THIS SHIFT. SAFETY/FALL PRECAUTIONS MAINTAINED. WILL CONTINUE TO MONITOR.
--- NOTE | 2019-01-12 19:58 | NUR ---
ENDORSED CARE TO DYANA BARRIOS.
--- NOTE | 2019-01-12 22:02 | NUR ---
ONE OF PATIENTS DAUGHTER HERE, UPDATED WITH PLAN OF CARE AND ALSO WANTED TO SPEAK DIANE RESIDENT, DR PELAYO INFORMED AND WILL SEE HER IN ROOM.
--- NOTE | 2019-01-12 23:00 | NUR ---
PATIENT TURNED TO HER LEFT SIDE THIS TIME.
--- NOTE | 2019-01-13 00:15 | NUR ---
JAYDA BARROS HERE WILL SPEND THE NIGHT, CN AWARE. PATIENT SLEEPING COMFORTABLY, NO DISTRESS. WILL CONTINUE TO MONITOR.
[2019-01-13 05:54] VITALS: BP 105/56
--- NOTE | 2019-01-13 06:16 | NUR ---
PATIENT HAD A RESTFUL AND COMFORTABLE NIGHT WAS TURNED Q2HRS. MOANS WHEN TURNED. HEPLOCK SITES PATENT AND INTACT FLUSHED WELL WITHOUT RESISTANCE ENCOUNTERED. DAUGHTERS STAYED DURING THE NIGHT AND WAS UPDATED WITH PLAN OF CARE. SAFETY/FALL PRECAUTIONS MAINTAINED. WILL ENDORSE CONTINUITY OF CARE TO INCOMING NURSE.
--- NOTE | 2019-01-13 07:00 | NUR ---
PT RESTING BUT EASILY AROUSABLE. DAUGHTER KRISTI AT BEDSIDE. AAOX4. ABLE TO FOLLOW COMMANDS. PERRL. SPEECH SLOW BUT CLEAR AND APPROPRIATE ON 2L NASAL CANNULA. SYMMETRICAL CHEST WALL MOVEMENT. RESPS EVEN/UNLABORED. NO APPARENT SIGNS OF DISTRESS AT THIS TIME. PIV TO R FA INTACT, PORT PATENT, HEPLOCK WITH BLUE CAP INTACT. F/C INTACT AND DRAINING VIA GRAVITY. FLEXISEAL SECURED AND DRAINING VIA GRAVITY. X3 SIDE RAILS UP, BED IN LOWEST POSITION, CALL LIGHT WITHIN REACH.
--- NOTE | 2019-01-13 07:35 | NUR ---
BEDSIDE HANDS OFF AND INTRODUCTION PERFORMED WITH INCOMING NURSE JOSE.
[2019-01-13 08:00] LABS: CALCIUM 8.2 mg/dL (8.5-10.1); CARBON DIOXIDE 26.1 mmol/L (21-32); CHLORIDE SERUM 104 mmol/L (98-107); CREATININE SERUM 0.6 mg/dL (0.6-1.0); GLUCOSE SERUM 119 mg/dL (74-106); MAGNESIUM 1.8 mg/dL (1.8-2.4); PHOSPHOROUS 2.5 mg/dL (2.5-4.9); POTASSIUM SERUM 3.4 mmol/L (3.5-5.1); SODIUM SERUM 139 mmol/L (136-145)
[2019-01-13 08:06] LABS: BASOPHIL % 0.3 % (0-2); PLATELET COUNT 317 x10^3mcL (130-400); RED CELL DISTRIBUTION WIDTH 14.3 % (11.5-14.5)
[2019-01-13 10:38] VITALS: BP 112/55
--- NOTE | 2019-01-13 11:20 | NUR ---
PT'S FLEXISEAL LEAKING. PT CLEANED, GOWN CHANGED, CHUCKS CHANGED, SHEETS CHANGED, CAMPBELL CARE AND PERINEAL CARE PROVIDED. PT TOLERATED WELL WITH NO ACUTE SIGNS OF DISTRESS.
--- NOTE | 2019-01-13 12:53 | NUR ---
PT IS RESTING AT THIS TIME. REMAINS ON 2L NASAL CANNULA. BREATHING E/U. SYMM CHEST WALL EXPANSION. NO APPARENT SIGNS OF DISTRESS. F/C INTACT AND DRAINING VIA GRAVITY. FLEXISEAL REMAINS SECURED WITH NO LEAKAGE NOTED. X3 SIDE RAILS UP, BED IN LOWEST POSITION, CALL LIGHT WITHIN REACH.
[2019-01-13 13:20] VITALS: BP 116/61
--- NOTE | 2019-01-13 15:15 | NUR ---
FIRST K-RIDER BAG INFUSING @ THIS TIME. ICE PACK GIVEN TO PUT ON SITE DUE TO PT C/O PAIN
[2019-01-13 17:17] VITALS: BP 123/70
--- NOTE | 2019-01-13 17:38 | NUR ---
PT RESTING IN BED. RESP EQUAL AND UNLABORED, NO DISTRESS NOTED. IV POTASSIUM INFUSING. PT TOLERATING WELL. WILL CONTINUE TO MONITOR
--- NOTE | 2019-01-13 19:52 | NUR ---
EYES CLOSED, EASILY AWAKENED. ABLE TO MAKE NEEDS KNOWN. BREATHING EVEN AND UNLABORED ON 2LPM OF O2 VIA NC. LUNG SOUNDS DIMINISHED. SINUS RHYTHM ON TELE #1. SALINE LOCK TO RIGHT DISTAL FOREARM. NOTED HAVING COLD COMPRESS ON IV SITE. NO REDNESS OR SWELLING NOTED TO IV SITE. FLUSHED WELL. OPTIFOAM NOTED TO SACRUM. CAMPBELL CATH DRAINING DARK MIRIAM URINE. FLEXISEAL IN PLACE, NOTED LIQUID STOOL IN TUBE. CALL LIGHT WITHIN EASY REACH.
[2019-01-13 21:03] VITALS: BP 103/53
--- NOTE | 2019-01-13 21:30 | NUR ---
DAUGHTER HELPED PT SIT UP ON BED. PT MOVING LEGS. USING INCENTIVE SPIROMETER.
--- NOTE | 2019-01-13 22:53 | NUR ---
PT;S DAUGHTER LEFT, PLACED BED ALARM ON. HOB KEPT ELEVATED 30 DEG.
--- NOTE | 2019-01-14 00:13 | NUR ---
EYES CLOSED, BREATHING EVEN AND UNLABORED ON 2LPM OF O2 VIA NC. HOB KEPT ELEVATED 30 DEG. CALL LIGHT WITHIN EASY REACH. BED ALARM ON. SINUS RHYTHM ON TELE, HR 74/MIN.
--- NOTE | 2019-01-14 00:59 | NUR ---
TURNED AND REPOSTIIONED. DRAINED 750ML OF MIRIAM COLORED URINE FROM CAMPBELL BAG. SCANT AMOUNT OF LIQUID STOOL IN FLEXISEAL BAG. APPLIED NEW OPTIFOAM TO SACRUM, NO REDNESS OR SKIN BREAKDOWN NOTED TO SACRAL AREA.
--- NOTE | 2019-01-14 02:29 | NUR ---
EYES CLOSED, BREATHING EVEN AND UNLABORED ON 2LPM OF O2 VIA NC. HOB KEPT ELEVATED 30 DEG. CALL LIGHT WITHIN EASY REACH, BED ALARM ON.
[2019-01-14 06:00] VITALS: BP 107/59
[2019-01-14 06:17] LABS: BASOPHIL % 0.3 % (0-2); PLATELET COUNT 320 x10^3mcL (130-400); RED CELL DISTRIBUTION WIDTH 14.5 % (11.5-14.5)
--- NOTE | 2019-01-14 06:17 | NUR ---
PADS CHECKED, DRY AND CLEAN. TURNED AND REPOSITIONED. STATED HAVING PAIN TO HIPS. WILL ADMINISTER TYLENOL FOR PAIN.
--- NOTE | 2019-01-14 06:32 | NUR ---
TYLENOL 650MG MIXED IN PUDDING ADMINISTERED PO. NO CHOKING OR COUGHING NOTED. ON HIGH FOWLERS.
[2019-01-14 06:42] LABS: CALCIUM 7.9 mg/dL (8.5-10.1); CARBON DIOXIDE 25.9 mmol/L (21-32); CHLORIDE SERUM 106 mmol/L (98-107); CREATININE SERUM 0.5 mg/dL (0.6-1.0); GLUCOSE SERUM 119 mg/dL (74-106); MAGNESIUM 1.9 mg/dL (1.8-2.4); PHOSPHOROUS 2.4 mg/dL (2.5-4.9); POTASSIUM SERUM 3.6 mmol/L (3.5-5.1); SODIUM SERUM 140 mmol/L (136-145)
--- NOTE | 2019-01-14 07:21 | NUR ---
awake and alert, breathing even and unlabored on 2lpm of o2. in no acute distress. endorsed to nurse edda
--- NOTE | 2019-01-14 07:30 | NUR ---
RECEIVED PT IN BED. ASSESSED AND DOCUMENTED. DENIES PAIN THIS TIME. NO SOB NOTED. SAFTEY PRECAUTIONS ARE IN PLACE.
[2019-01-14 09:18] VITALS: BP 92/54
--- NOTE | 2019-01-14 09:30 | NUR ---
PT K=3.6 AND NOTICED ORDER FOR KRIDER 20MEQ. VERIFIED WITH AND HE SAID HE ORDERED 2 BAG OF 20MEQ ORDERED TO GIVE YESTERDAY NOT TODAY, ALSO HE SAID SINCE K=3.6 NO NEED TO GIVE KRIDER TODAY, WILL CHECK K LEVEL TOMORROW. INFORMED PHARMACY.
--- NOTE | 2019-01-14 10:00 | NUR ---
RECTAL TUBE IS DRAINING BROWN COLOR LIQUID STOOL THIS TIME. NO LEAKAGE NOTED. PT IS STABLE. RESTING IN BED COMFORTABLY. DENIES ANY PAIN. WILL MONITOR.
--- NOTE | 2019-01-14 13:26 | NUR ---
Follow-up Nutrition Assessment: 204T/A MICHEAL HERRON FU HR Dx: Severe sepsis PMHx: Alzheimers, scoliosis, R hip osteoarthritis, glaucoma, thalassemia, osteoporosis Labs: (01/14) BG 119H, CA 7.9L, HGB 11.2L Meds: Colace, Lopressor, Zofran, heaprin Diet: Puree w/ thin liquid, banana w/ each meal PO Intake: (01/14) 30-40% per IT OPERATIONS MANAGER Weights: (01/11) 54 kg, (01/14) 54.1 kg Skin: dry lesion upper lip Jl: 14 I/Os: (01/14) 850/1350 (-500) Edema: none GI: poor appetite, supervision for feeding Last BM: 01/13, flexiseal in place, liquid stool RDN Visit (01/14): Patient was sleeping. Per IT OPERATIONS MANAGER, patient has poor appetite and has not been eating very well. Per RN Angelica, pt has diarrhea but has been improving now. RN mentioned about providing high K+ foods. Puree Banana is being given to the patient with every meal to help in providing soluble fiber for diarrhea and repleting lost potassium. Page Estimated Nutritional Needs based on current body weight 54 kg Energy: 5219-2626 kcal/d (25-30 kcal/kg) Protein: 65-75 g/d (1.2-1.4 g/kg) - sepsis Fluid: 1176-4089 (1ml/kcal) or per MD Nutrition Diagnosis 1. Inadequate oral intake related to poor appetite as evidenced by PO of 30-40%. Intervention 1. Recommend continuing puree diet, banana w/ each meal. 2. Recommend Ensure clear BID. This will provide additional 480 kcal and 16g protein. Monitor/Evaluate Goal: Have pt meet at least 75% of estimated needs Monitor: PO intake, Labs, GI function F/U in 2-3 days as high risk 01/16-
--- NOTE | 2019-01-14 13:26 | NUR ---
1. Recommend continuing puree diet, banana w/ each meal. 2. Recommend Ensure clear BID. This will provide additional 480 kcal and 16g protein.
--- NOTE | 2019-01-14 14:00 | NUR ---
PT RESTING IN BED COMFORTABLY. REPOSITIONING Q2HR. STABLE. DENIES ANY PAIN.
[2019-01-14 14:41] VITALS: BP 96/58
--- NOTE | 2019-01-14 15:47 | NUR ---
PHYSICAL THERAPY DAILY NOTES CO-SIGN All documentation done by the Solid Waste Disposal Manager for 01/14/19 has been reviewed. I agree with the documentation. Reviewed/Co-Signed by: Hanny Dixon PT Documentation Done by:FREDO NOVAK PTA
--- NOTE | 2019-01-14 16:30 | NUR ---
UNIT CONTROLLER MARIO CALLED AND ASKED ABOUT PT HAS RECTAL TUBE OR NOT.INFORMED PT HAS RECTAL TUBE AND STILL DRAINING BROWN LIQUID STOOL. SHE SAID SHE HAS TO CALL SNF AND MAKE SURE THEY WILL TAKE PT OR NOT. CHARGE NURSE AWARE.
--- NOTE | 2019-01-14 17:00 | NUR ---
FOUND PT SITTING UP IN THE CHAIR. DAUGHTER AND SISTER AT [facility]. SAFTEY PRECAUTIONS ARE IN PLACE. THEY SAID EDGE POLISHER ASSISTER THEM TO PUT PT IN CHAIR. PT'S DAUGHTER IS A NURSE.
[2019-01-14 17:32] VITALS: BP 92/85
[2019-01-14] MEDS ORDERED: ROC1I IV (17:44)
--- NOTE | 2019-01-14 18:15 | NUR ---
FOUND PT BACK IN THE CHAIR. STUNNER ANIMAL AND DAUGHTER ASSISTED PT BACK IN THE CHAIR. PT IS STABLE. DENIES ANY PAIN. CAMPBELL DRAINING TO GRAVITY WITH YELLOW URINE. RECTAL TUBE DRAINING LIQUID STOOL BROWN COLOR. FAMILY AT BEDSIDE.
--- NOTE | 2019-01-14 19:10 | NUR ---
PT REMAINS STABLE. DENIES ANY PAIN. GAVE REPORT TO METAL MINER NURSE.
--- NOTE | 2019-01-14 19:56 | NUR ---
RECEIVED PATIENT IN BED SLEEPING WITH NO INDICATION OF RESPIRATORY DISTRESS. BREATHING EASY AND NONLABOR ON O2 AT 2L VIA NC. TELE#1 NSR ON MONITOR. PATIENT ON HEPARIN [address] UN[address] SQ. FLEXISEAL IN PLACE WITH SMALL AMOUNT OF SOFT STOOL. CAMPBELL TO GRAVITY DRAINING YELLOW URINE OUTPUT. IV TO RFA HEPLOCK FLUSHED WITH NS. WILL CONTINUE TO MONITOR. CALL LIGHT WITHIN REACH.
--- NOTE | 2019-01-14 21:36 | NUR ---
SPOKE WITH DR PELAYO RE DISCHARGE ORDER OF DR MONROE, PER AM SOPHIE ALFONSO, ROUTING MACHINE OPERATOR WILL INFORM SNF IF THEY WILL TAKE PATIENT OR NOT WITH RECTAL TUBE WHICH IS STILL DRAINING LIQUID STOOL. DR PELAYO MAKE DISCHARGE ORDER FOR TOMORROW 01/15/19.
[2019-01-14 21:39] VITALS: BP 92/51
--- NOTE | 2019-01-14 21:56 | NUR ---
C/O LEG PAIN AT SCALE OF 610 PER PATIENT, TYLENOL 650MG PO GIVEN PRESCRIBED. WILL CONTINUE TO MONITOR.
--- NOTE | 2019-01-14 22:49 | NUR ---
STILL AWAKE WITH NO SIGN OF DISTRESS. REPOSITIONED FOR COMFORT.
--- NOTE | 2019-01-15 05:15 | NUR ---
AWAKE MOST OF THE TIME, REPOSITIONED FOR COMFORT. CHECKED AT INTERVALS FOR NEEDS AND SAFETY.
[2019-01-15 05:33] VITALS: BP 92/49
[2019-01-15 06:27] LABS: BASOPHIL % 0.3 % (0-2); PLATELET COUNT 360 x10^3mcL (130-400)
[2019-01-15 06:35] LABS: RED CELL DISTRIBUTION WIDTH 14.6 % (11.5-14.5)
[2019-01-15 06:46] LABS: CALCIUM 8.1 mg/dL (8.5-10.1); CARBON DIOXIDE 26.4 mmol/L (21-32); CHLORIDE SERUM 106 mmol/L (98-107); CREATININE SERUM 0.5 mg/dL (0.6-1.0); GLUCOSE SERUM 103 mg/dL (74-106); PHOSPHOROUS 2.6 mg/dL (2.5-4.9); POTASSIUM SERUM 3.6 mmol/L (3.5-5.1); SODIUM SERUM 141 mmol/L (136-145)
--- NOTE | 2019-01-15 07:16 | NUR ---
PHYSICAL THERAPY NOTE PATIENT TO BE SEEN FOR PHYSICAL THERAPY FOLLOW UP SESSION
--- NOTE | 2019-01-15 07:20 | NUR ---
RECEIVED PT IN BED. ASSESSED AND DOCUMENTED. PT RESTING IN BED COMFORTABLY. DENIES ANY PAIN. SAFTEY PRECAUTIONS ARE IN PLACE. ON AIR MATTRESS. REPOSITIONING Q2HR. WILL NAY MONITER THE PT.
[2019-01-15 09:30] VITALS: BP 75/47
--- NOTE | 2019-01-15 09:30 | NUR ---
INFORMED ABOUT PT BP 75/47 WITH MAP 57. PT ASYMPTAMATIC. HE SAID HE WILL CHECK. NO NEW ORDER RECEIVED THIS TIME. CHARGE NURSE AWARE.
[2019-01-15 10:00] VITALS: BP 79/42
--- NOTE | 2019-01-15 10:00 | NUR ---
RECHECKED BP IS STILL LOW 79/42 WITH MAP 58, INFORMED AND . THEY DID ROUNDS. TOLD TO ORDER NS BOLUS. SAID TO CHECK THE C-DIFF STOOL AND WAIT FOR THE RESULT, THEN DECIDE WHETHER KEEP THE RECTAL TUBE OR NOT BUT KEEP IT FOR NOW. WILL SENT THE C-DIFF STOOL. PT IS STABLE. INFORMED ABOUT PT'S DAUGHTER WANT TO SPEAK WITH DOCTOR. HE SAID HE WILL CALL.
--- NOTE | 2019-01-15 11:45 | NUR ---
NS BOLUS STARTED PER ORDER FOR LOW BP 79/42. WILL RECEHCK BP AFTER BOLUS DONE. C-DIFF STOOL SENT. PT IS STABLE.
--- NOTE | 2019-01-15 12:55 | NUR ---
RECEHCKED BP AFTER NS BOLUS IS 94/55 WITH MAP 69. PT IS STABLE. RESTING IN BED COMFORTABLY. REPOSITIONING Q2HR.
[2019-01-15 14:00] VITALS: BP 94/55
--- NOTE | 2019-01-15 15:30 | NUR ---
REMOVED CAMPBELL CATH AND RECTAL TUBE PER ORDER. PERICARE GIVEN. SKIN INTACT. PT IS STABLE.
--- NOTE | 2019-01-15 16:20 | NUR ---
PHYSICAL THERAPY DAILY NOTES CO-SIGN All documentation done by the Equipment Driver for 01/15/19 has been reviewed. I agree with the documentation. Reviewed/Co-Signed by: Hanny Dixon PT Documentation Done by:FREDO NOVAK PTA
[2019-01-15 16:46] VITALS: BP 96/62
--- NOTE | 2019-01-15 17:00 | NUR ---
PT VOIDED AND HAVE BM AFTER CAMPBELL AND RECTAL TUBE REMOVED. STABLE. DAUGHTER AT BED SIDE. SAID THEY ARE WAITING FOR THE C-DIFF RESULT AND WILL DECIDE ABOUT DISCHARGE, NOW PT IS STAYING IN THE HOSPITAL. CHARGE NURSE AWARE.
--- NOTE | 2019-01-15 19:10 | NUR ---
PT REMAINS STABLE. DENIES ANY PAIN. GAVE REPORT TO SKIDWAY WORKER NURSE.
--- NOTE | 2019-01-15 19:59 | NUR ---
RECEIVED PATIENT IN BED SLEEPING ESILY AROUSABLE WITH NO C/O PAIN AND DISCOMFORT AT THIS TIME. BREATHING EASY AND NONLABOR ON O2 AT 2L VIA NC. ABDOMEN SOFT AND NONTENDER WITH ACTIVE BS. IV TO RFA HEPLOCK FLUSHED WITH NS. WILL CONTINUE TO MONITOR. CALL LIGHT WITHIN REACH.
[2019-01-15 20:34] VITALS: BP 114/65
--- NOTE | 2019-01-15 21:00 | NUR ---
DUE MED GIVEN PATIENT TOLERATED TAKING HER PO MEDS. REPOSITINED FOR COMFORT.
--- NOTE | 2019-01-15 23:50 | NUR ---
SLEEPING WITH NO SIGN OF DISTRESS, BREATHING EASY AND NONLABOR. WILL CONTINUE TO MONITOR.
--- NOTE | 2019-01-16 05:06 | NUR ---
SLEPT FAIRLY WITH NO SIGN OF DISTRESS NOTED THE ENTIRE SHIFT. REPOSITIONED FOR COMFORT. ALL NEEDS ATTENDED. CHECKED AT INTERVALS FOR NEEDS AND SAFETY.
[2019-01-16 05:09] VITALS: BP 111/52
--- NOTE | 2019-01-16 05:59 | NUR ---
HAD BM X2 LOOSE IN LARGE AMOUNT. PERINEAL AND PERIRECTAL CARE GIVEN. REPOSITIONED FOR COMFORT. WILL ENDORSE CONTINOUS CARE TO AM SHIFT.
[2019-01-16 06:32] LABS: BASOPHIL % 0.5 % (0-2); PLATELET COUNT 392 x10^3mcL (130-400); RED CELL DISTRIBUTION WIDTH 14.4 % (11.5-14.5)
[2019-01-16 07:04] LABS: CALCIUM 7.8 mg/dL (8.5-10.1); CARBON DIOXIDE 25.5 mmol/L (21-32); CHLORIDE SERUM 107 mmol/L (98-107); CREATININE SERUM 0.5 mg/dL (0.6-1.0); GLUCOSE SERUM 119 mg/dL (74-106); MAGNESIUM 1.9 mg/dL (1.8-2.4); PHOSPHOROUS 2.4 mg/dL (2.5-4.9); POTASSIUM SERUM 3.6 mmol/L (3.5-5.1); SODIUM SERUM 139 mmol/L (136-145)
--- NOTE | 2019-01-16 07:10 | NUR ---
RECEIVED PT FROM MEALS ON WHEELS DRIVER RN. A/OX3. DROWSY BUT AROUSABLE TO VOICE. SLOW TO ANSWER. MED SURG. DENIES CHEST PAIN/PRESSURE. RESPIRATIONS EQUAL AND UNLABORED ON 2L NC. DENIES SOB. PT DENIES ANY PAIN AT THIS TIME. PT STATES "I WANT TO REST. I WILL WAIT TO EAT" SMALL SCAB TO UPPER LIP, GURDEEP. AIR MATTRESS IN PLACE. IV TO RFA SALINE LOCKED. NO REDNESS OR SWELLING NOTED. WILL CONTINUE TO MONITOR. CALL LIGHT IN REACH. BED IN LOWEST POSITION.
[2019-01-16 08:48] VITALS: BP 97/50
--- NOTE | 2019-01-16 09:32 | NUR ---
PHYSICAL THERAPIST FREDO AT BEDSIDE. PT ASSISTED TO CHAIR. PT SAT UP IN CHAIR FOR MEDICATION. GIVEN PO MEDS. TOLERATED WELL. NO ACUTE RESP DISTRESS NOTED ON RA. PT 02 SAT ON RA 95%. IV FLUSHED WELL TO RFA. NO REDNESS OR SWELLING NOTED. ASSISTED PT BACK TO BED. PT POSITIONED ON RIGHT SIDE WITH PILLOW BETWEEN LEGS. PT C/O PAIN 5/10 TO LEFT SIDE HIP. PT ASKING FOR TYLENOL. MEDICATED PER EMAR. WILL CONTINUE TO MONITOR. CALL LIGHT IN REACH. BED IN LOWEST POSITION.
--- NOTE | 2019-01-16 10:36 | NUR ---
DAUGHTER AT BEDSIDE. PT SITTING UP IN CHAIR AT BEDSIDE. NO ACUTE RESP DISTRESS NOTED ON RA. PT STATES PAIN TO LEFT SIDE HIP IS SAME /10. PER DAUGHTER WHAT HELPS PT IS HELPING WITH PASSIVE ROM EXERCISES. PT EATING BREAKFAST. TOLERATING WELL. WILL CONTINUE TO MONITOR. CALL LIGHT IN REACH. BED IN LOWEST POSITION.
--- NOTE | 2019-01-16 11:20 | NUR ---
ROCEPHIN DISCONTINUED PER PHARMACY. PAGED DR. ORTIZED TO CONTINUE ROCEPHIN. AWAITING CALL BACK.
--- NOTE | 2019-01-16 11:37 | NUR ---
Follow-up Nutrition Assessment: 204T/A MICHEAL HERRON FU HR Dx: Severe sepsis PMHx: Alzheimers, scoliosis, R hip osteoarthritis, glaucoma, thalassemia, osteoporosis Labs: (01/16) BG 119H, CA 7.8L, HGB 11.0L, A1C 6.6H Meds: Colace, Lopressor, Zofran, heparin Diet: Puree w/ thin liquid, banana w/ each meal, Ensure clear BID PO Intake: (01/15) dinner 30%+ ensure clear, lunch 65%, breakfast 20% + ensure clear, (01/14) 30-40% per GUEST SERVICE AGENT Weights: (01/11) 54 kg, (01/14) 54.1 kg, (01/16) Skin: dry lesion upper lip Jl: 14 I/Os: (01/15) 850/2080 (-1230) Edema: none GI: poor appetite, supervision for feeding Last BM: 01/15 RDN Visit (01/14): Patient was sitting on a chair and eating puree diet. Pt's. daughter was at bedside and she said that patient has very poor appetite but she drink Ensure clear. Patient does not have any N/V and Diarrhea has been starting to resolve. Patient is having formed stools per daughter. Pt's. daughter is agreeable to change ONS to Glucerna and says that the patient likes it.Per progress note (01/15) D/C rectal tube and Recinos catheter. Per bed huddles, pt. is being D/C today. Estimated Nutritional Needs based on current body weight 54 kg Energy: 3453-3850 kcal/d (25-30 kcal/kg) Protein: 65-75 g/d (1.2-1.4 g/kg) - sepsis Fluid: 0964-8661 (1ml/kcal) or per MD Nutrition Diagnosis 1. Inadequate oral intake related to poor appetite as evidenced by PO of 30-40%. (ongoing) Intervention 1. Recommend continuing puree diet, banana w/ each meal. 2. Recommend ONS Glucerna TID. This will provide additional 660 kcal and 30g protein. Discussed recommendations with Dr. Jitendra Wolf. Monitor/Evaluate Goal: Have pt meet at least 75% of estimated needs Monitor: PO intake, Labs, GI function F/U in 2-3 days as high risk 01/18-
--- NOTE | 2019-01-16 12:20 | NUR ---
PAGED DR. OROZCO REGARDING RICKI ORDER. AWAITING CALL BACK.
--- NOTE | 2019-01-16 12:22 | NUR ---
IV TO RFA LEAKING WHEN FLUSHED. IV REMOVED CATHETER INTACT. NO REDNESS OR SWELLING NOTED.
--- NOTE | 2019-01-16 13:34 | NUR ---
ASSISTED PT BACK TO BED WITH DAUGHTER. PT TOLERATED WELL. POSITIONED PT ON LEFT SIDE WITH HOB ELEVATED, PILLOW BETWEEN LEGS. WILL CONTINUE TO MONITOR. CALL LIGHT IN REACH. BED IN LOWEST POSITION.
--- NOTE | 2019-01-16 13:41 | NUR ---
SPOKE WITH JULIO CESAR PEDIATRIC CARDIOLOGIST. PER JULIO CESAR NEED TO UPDATE HER WHEN DISCHARGE IS COMPLETED.
--- NOTE | 2019-01-16 13:41 | NUR ---
DAUGHTER STATES SHE CALLED DR. OROZCO TO PUT IN DISCHARGE ORDERS FOR TODAY.
[2019-01-16 13:45] VITALS: BP 97/50
--- NOTE | 2019-01-16 14:03 | NUR ---
PT IN BED RESTING. NO ACUTE RESP DISTRESS NOTED ON RA. IV ANTIBIOTICS INFUSING ORDERED. IV PATENT. SPOKE WITH ALUM OPERATOR JULIO CESAR. PER JULIO CESAR WILL SET UP PT MOBILE HOME MECHANIC. WILL CONTINUE TO MONITOR. CALL LIGHT IN REACH. BED IN LOWEST POSITION.
--- NOTE | 2019-01-16 14:43 | NUR ---
SPOKE WITH PT SISTER DARBY GIVEN UPDATE ON PT.
--- NOTE | 2019-01-16 15:08 | NUR ---
CALLED [facility] REPORT GIVEN TO CITLALI BARRIOS. ALL QUESTIONS AND CONCERNS ADDRESSED.
--- NOTE | 2019-01-16 16:02 | NUR ---
PHYSICAL THERAPY DAILY NOTES CO-SIGN All documentation done by the Solid Waste Division Supervisor for 01/16/19 has been reviewed. I agree with the documentation. Reviewed/Co-Signed by: Hanny Dixon PT Documentation Done by:FREDO NOVAK PTA
[2019-01-16 17:38] VITALS: BP 99/55
--- NOTE | 2019-01-16 18:41 | NUR ---
ALL OF PATIENT HOME MEDICATION TIMOLOL EYE DROP, LATANOPROST, AND RESTASIS AT BEDSIDE WITH PATIENT BELONGINGS. CALLED PHARMACY NO HOME MEDS ARE BEING KEPT IN PHARMACY.
--- NOTE | 2019-01-16 19:27 | NUR ---
[facility] AT BEDSIDE. REPORT GIVEN TO EMT. ALL QUESTIONS AND CONCENRS ADDRESSED. PT TAKEN OFF FLOOR VIA GUERNEY. ALL BELONGINING WITH PATIENT. NO PROBLEMS ENCOUNTERED. PACKET GIVEN TO EMT.
== END 2019-01-16 19:28 | DRG 871 ==
LOC: ED 18:03 → IC 21:52 → DU 01-12 15:53 → MU 01-14 15:21
PROVIDERS: Emergency Medicine; Internal Medicine; ADMIT Internal Medicine
PROC: 009U3ZX Drainage of Spinal Canal, Percutaneous Approach, Diagnostic (ICD-10-PCS; principal; 2019-01-08)
PROC: 5A1945Z Respiratory Ventilation, 24-96 Consecutive Hours (ICD-10-PCS; 2019-01-08)
PROC: 0BH17EZ Insertion of Endotracheal Airway into Trachea, Via Natural or Artificial Opening (ICD-10-PCS; 2019-01-08)
DX: A40.3 Sepsis due to Streptococcus pneumoniae (principal); R65.20 Severe sepsis without septic shock; J96.01 Acute respiratory failure with hypoxia; J18.9 Pneumonia, unspecified organism; E43 Unspecified severe protein-calorie malnutrition; I21.A1 Myocardial infarction type 2; G00.1 Pneumococcal meningitis; N17.0 Acute kidney failure with tubular necrosis; G93.41 Metabolic encephalopathy; Z68.1 Body mass index [BMI] 19.9 or less, adult; E87.1 Hypo-osmolality and hyponatremia; E86.0 Dehydration; I95.89 Other hypotension; I48.0 Paroxysmal atrial fibrillation; E87.6 Hypokalemia; G30.9 Alzheimer's disease, unspecified; F02.80 Dementia in other diseases classified elsewhere, unspecified severity, without behavioral disturbance, psychotic disturbance, mood disturbance, and anxiety; D25.9 Leiomyoma of uterus, unspecified; K21.9 Gastro-esophageal reflux disease without esophagitis; M81.0 Age-related osteoporosis without current pathological fracture; M16.11 Unilateral primary osteoarthritis, right hip; H40.9 Unspecified glaucoma; E78.5 Hyperlipidemia, unspecified; F32.9 Major depressive disorder, single episode, unspecified
CPT/HCPCS: 36600; 87046; 87046-59; 92526-GN; 92610-GN; 97110-GP; 97530-GP; A4628; C9113; G0378; J0133; J0290; J0330; J0696; J1100; J1644; J1885; J2250; J2543; J2704; J3010; J3370; J3480; J3490; J7030; J7040; Q0092; Q9967